=== PATIENT | female | born 1985 | race Hispanic/Latino ===

== ENCOUNTER 2024-10-09 12:35 | Outpatient (CLI) | payer BC ==
[2024-10-09 14:14] LABS: Hematocrit 39.1 % (34.9-44.5); Mean Corpuscular HGB CONC 30.7 g/dL (32.0-36.0); Mean Corpuscular Hemoglobin 24.3 pg (27.0-33.0); Mean Corpuscular Volume 79.1 fL (81.6-98.3); Mean Platelet Volume 9.9 fL (7.4-10.4); Platelet Count 305 10x3/uL (150-450); RBC Distribution Width 19.3 % (11.5-14.5); Red Blood Cell (RBC) Count 4.94 10x6/uL (3.90-5.03); White Blood Cell (WBC) Count 4.3 10x3/uL (3.5-10.5)
[2024-10-09 14:22] LABS: BHCG - Serum Negative (NEGATIVE); Pregs Control Background? CLEAR/WHITE (CLR/WHITE); Pregs Control Bar Appear? YES (CONTROL BAR)
== END 2024-10-09 12:36 | disposition home or self-care (01) ==
LOC: CSHLAB 12:35
PROVIDERS: ATTEND Obstetrics & Gynecology
DX: Z01.818 Encounter for other preprocedural examination (principal); N92.0 Excessive and frequent menstruation with regular cycle
CPT/HCPCS: 84703; 85027; 93005; 93010

== ENCOUNTER 2024-10-13 10:28 | Day surgery (SDC) | payer BC ==
[2024-10-09 13:37] VITALS: BMI 58.1
[2024-10-13] MEDS ORDERED: Acetaminophen 500 MG TAB ONE (10:51)
[2024-10-13] MEDS ORDERED: Dexamethasone 20 MG/5 ML VIAL ONE (10:58)
[2024-10-13] MEDS ORDERED: Ondansetron PF 4 MG/2 ML Vial ONE (10:58)
[2024-10-13] MEDS ORDERED: Lidocaine 2% PF 5 ML VIAL ONE (10:58)
[2024-10-13] MEDS ORDERED: PROPOFOL 20 ML ONE (10:59)
[2024-10-13] MEDS ORDERED: Famotidine/PF 20 mg/2ml Vial ONE (11:02)
[2024-10-13] MEDS ORDERED: fentaNYL 50 mcg/mL 1 mL Vial ONE ×2 (11:20→12:03)
[2024-10-13] MEDS ORDERED: Rocuronium Bromide 10 MG/ML (10ML VIAL) ONE (11:31)
[2024-10-13] MEDS ORDERED: SUGAMMADEX SODIUM 200 MG/2 ML VIAL ONE (11:31)
[2024-10-13] MEDS ORDERED: CEFAZOLIN 2 GM VIAL ONE (11:50)
[2024-10-13] MEDS ORDERED: Meperidine HCl/PF 25 MG (1 mL) VIAL ONE (13:16)
[2024-10-13] MEDS ORDERED: HYDROcodone/Acetaminophen 5/325 mg Tablet ONE (13:46)
== END 2024-10-13 14:10 | disposition home or self-care (01) ==
LOC: CSHSDC 10:28
PROVIDERS: ATTEND Obstetrics & Gynecology
PROC: 0UB98ZZ Excision of Uterus, Via Natural or Artificial Opening Endoscopic (ICD-10-PCS; principal; 2024-10-13)
DX: N84.0 Polyp of corpus uteri (principal); E66.9 Obesity, unspecified; F41.9 Anxiety disorder, unspecified; Z68.43 Body mass index [BMI] 50.0-59.9, adult; Z90.710 Acquired absence of both cervix and uterus; Z87.891 Personal history of nicotine dependence; Z79.899 Other long term (current) drug therapy
CPT/HCPCS: 88305; J1100; J2175; J2405; J2704; J3010; J3490